=== PATIENT | male | born 1995 | race Caucasian/White ===

== ENCOUNTER 2022-03-05 15:34 | Emergency (ER) | payer SELFPAY ==
[~2022-03-05] VITALS: Ht 167.6 cm; Wt 75.0 kg
[2022-03-05 15:42] VITALS: BP 110/70
[2022-03-05] MEDS ORDERED: BACITRACIN ZINC OINT UDPKT TOP ONE (16:15)
[2022-03-05] MEDS ORDERED: ACETAMINOPHEN 325MG TABLET PO ONE (16:15)
[2022-03-05] MEDS ORDERED: TETANUS, DIPHTHERIA, PERTUSSIS VAC/PF 0.5ML (>10YR OLD) IM ONE (16:15)
[2022-03-05] MEDS ORDERED: ACETAMINOPHEN 325MG TABLET PO NR (17:00)
[2022-03-05] MEDS ORDERED: BACITRACIN ZINC OINT UDPKT TOP NR (17:00)
== END 2022-03-05 18:00 ==
LOC: ER 16:50
DX: S61.216A Laceration without foreign body of right little finger without damage to nail, initial encounter (principal); X58.XXXA Exposure to other specified factors, initial encounter; Y93.9 Activity, unspecified; Y92.9 Unspecified place or not applicable
CPT/HCPCS: 73140; 90471; 90715; 99283